=== PATIENT | female | born 1960 | race Caucasian/White ===

== ENCOUNTER → 2016-11-12 | Outpatient (CLI) | payer SELFPAY ==
[~2016-11-12] MED LIST: ALLERGY EYE DRO10 ML OU; FLONASE ALLERG9.9 ML; LEXAPRO20 MG PO; LOSARTAN-HCTZ1 EAC1 PO; METFORMIN HCL500 M1 PO; NEURONTIN100 MG PO; OMEPRAZOLE20 M1 PO; PRAVASTATIN SOD40 MG PO; VITAMIN D2000 UNIT PO
== END | disposition home or self-care (01) ==
LOC: CBAR 09:51
DX: Z01.818 Encounter for other preprocedural examination (principal); E66.01 Morbid (severe) obesity due to excess calories
CPT/HCPCS: G0463

== ENCOUNTER → 2016-12-10 | Outpatient (CLI) | payer SELFPAY | END | disposition home or self-care (01) | LOC: CBAR 08:10 | DX: Z01.818 Encounter for other preprocedural examination (principal); E66.01 Morbid (severe) obesity due to excess calories | CPT/HCPCS: G0463 ==

== ENCOUNTER → 2017-01-07 | Outpatient (CLI) | payer SELFPAY | END | disposition home or self-care (01) | LOC: CBAR 07:37 | DX: Z01.818 Encounter for other preprocedural examination (principal); E66.01 Morbid (severe) obesity due to excess calories | CPT/HCPCS: G0463 ==

== ENCOUNTER → 2017-02-28 | Outpatient (CLI) | payer OTHER ==
--- NOTE | ~2017-02-28 | CR97 ---
[facility] A Service of [facility] & [facility] / [facility] RADIOLOGY TEXT RESULTS PATIENT: OLAMIDE SELBY LOCATION: [facility] : 64 UNIT #: [id number] AGE: [address]: Davion Sandoval III, MD SEX: F ORDER DR: [id number] [id number] [place], [place] [address] [id number] O MR#: [id number] Acc #: [id number] NAME: OLAMIDE SELBY : 1960 SEX: F STUDY DATE/TIME: 02/28/2017 8:16 UNIT: [facility] ROOM: STUDY DESCRIPTION: CR Esophagram Attending Physician: Davion Sandoval III, M.D. Referring Physician: Davion Sandoval III, M.D. Ordering Physician: Davion Sandoval III, M.D. Primary Care Physician: Radha Ku M.D. MEDICAL IMAGING REPORT This report is preliminary unless electronic signature is present EXAM Esophagram HISTORY Presurgical planning for gastric lap band. TECHNIQUE With the patient upright, thin barium was utilized to evaluate the esophagus. A total of 16 overhead spot films were obtained with a fluoroscopy time of 0.4 minutes. FINDINGS Esophagus is of normal caliber with no evidence of stricture, mucosal irregularity or mass. No hiatal hernia is seen. The gastroesophageal junction has a normal appearance. IMPRESSION Negative esophagram. Dictated by... Darrell Mccormick M.D. THIS IS AN ELECTRONICALLY VERIFIED REPORT Darrell Mccormick M.D. at 02/28/2017 4:47 PM [place] TD: 02/28/2017 15:44 JOB #: [id number] MEDICAL IMAGING REPORT Page 1 of 1 COPY
--- NOTE | ~2017-02-28 | CR63 ---
[facility] A Service of [facility] & [facility] RADIOLOGY TEXT RESULTS PATIENT: OLAMIDE SELBY LOCATION: [facility] : 64 UNIT #: [id number] AGE: [address]: Davion Sandoval III, MD SEX: F ORDER DR: [id number] [facility] [address] [place], [place] [address] [id number] O MR#: [id number] Acc #: [id number] NAME: OLAMIDE SELBY. : 1960 SEX: F STUDY DATE/TIME: 02/28/2017 8:07 UNIT: [facility] ROOM: STUDY DESCRIPTION: CR Chest 2 View Attending Physician: Davion Sandoval III, M.D. Referring Physician: Davion Sandoval III, M.D. Ordering Physician: Davion Sandoval III, M.D. Primary Care Physician: Radha Ku M.D. MEDICAL IMAGING REPORT This report is preliminary unless electronic signature is present EXAM Chest, PA and lateral, 02/28/2017. HISTORY Morbid obesity, preop laparoscopic gastric banding. Benign essential hypertension. FINDINGS PA and lateral examination of the chest upright shows a good expansion of the parenchyma with a normal distribution of the pulmonary vascularity. There is no indication of congestion, effusion, infiltrate, tumor, or nodular density. The pleural reflections and diaphragmatic contours are normal. The cardiac silhouette and mediastinal anatomy is within normal limits. IMPRESSION Normal chest. Dictated by... Ravi Arnold M.D. THIS IS AN ELECTRONICALLY VERIFIED REPORT Ravi Arnold M.D. at 02/28/2017 5:34 PM CAPRI/alessandra TD: 02/28/2017 11:18 JOB #: [id number] MEDICAL IMAGING REPORT Page 1 of 1 COPY
--- NOTE | ~2017-02-28 | EKG ---
PATIENT: OLAMIDE SELBY UNIT #: [id number] Ventricular Rate: 74 BPM Atrial Rate: 74 BPM P-R Interval: 174 ms QRS Duration: 98 ms Q-T Interval: 414 ms QTC Calculation(Bezet): 459 ms P Industry: 47 degrees Calculated R Industry: -28 degrees Calculated T Industry: 16 degrees Diagnosis Line: Normal sinus rhythm Diagnosis Line: Incomplete right bundle branch block Diagnosis Line: Inferior infarct , age undetermined Diagnosis Line: Abnormal ECG Diagnosis Line: No previous ECGs available Diagnosis Line: Confirmed by AARTI ESQUIVEL MD ([id number]) on Diagnosis Line: 02/28/2017 12:08:23 PM INTERPRETING MD: SIERRA CARDONA
[2017-02-28 09:19] LABS: HEMATOCRIT 41.1 % (35.0-45.0); HEMOGLOBIN 13.7 gm/dL (12.0-16.0); MEAN CORPUSCULAR HGB CONC 33.4 g/dL (30-36); MEAN PLATELET VOLUME 8.8 FL (6.5-11.5); RED BLOOD COUNT 4.72 X10e (3.90-5.30); RED CELL DISTRIBUTION WIDTH 12.9 % (11.0-15.5); WHITE BLOOD COUNT 8.3 X10e3 (4.0-10.5)
[2017-02-28 10:30] LABS: ALBUMIN SERUM 3.7 g/dL (3.5-5.0); BUN/CREATININE RATIO 35.71; CALCIUM SERUM 9.2 mg/dL (8.4-10.2); CREATININE SERUM 0.7 mg/dL (0.6-1.4); GLOM FILT RATE Estimated 98.2 mL/min (>60); POTASSIUM 3.8 mmol/L (3.5-5.1); PROTEIN TOTAL SERUM 6.6 g/dL (6.0-8.3)
== END | disposition home or self-care (01) ==
LOC: CRAD 07:48 → CAMB 09:00
PROVIDERS: Surgery
DX: Z01.818 Encounter for other preprocedural examination (principal); E66.01 Morbid (severe) obesity due to excess calories; I10 Essential (primary) hypertension
CPT/HCPCS: 36415; 71020; 74220; 80053; 80061; 84443; 85027; 93005

== ENCOUNTER → 2017-03-12 | Day surgery (SDC) | payer OTHER ==
--- NOTE | ~2017-03-12 | OR ---
Unit #: [id number] #: [id number] Patient: OLAMIDE SELBY [id number] [facility] [address] [place], [place] [address] [id number] O MR#: [id number] NAME: OLAMIDE SELBY ROOM: Date of Procedure: 03/12/2017 Admission Date: 03/12/2017 Surgeon: Davion Sandoval III, M.D. : 1960 Attending Physician: Davion Sandoval III, M.D. Primary Care Physician: Radha Ku M.D. OPERATIVE REPORT PREOPERATIVE DIAGNOSIS Chronic severe obesity. POSTOPERATIVE DIAGNOSIS Chronic severe obesity. SECONDARY DIAGNOSIS Anterior paraesophageal hernia. PROCEDURES PERFORMED Laparoscopic adjustable gastric banding (AP standard with low-profile port) and laparoscopic paraesophageal hernia repair. AUTOMOBILE REPOSSESSOR Layton Iglesias M.D. SPECIMENS None. COMPLICATIONS None apparent. ESTIMATED BLOOD LOSS Minimal. INDICATIONS FOR PROCEDURE This is a 56-year-old lady, who has chronic severe obesity with a BMI of 37 and associated comorbidities of hypertension, reflux, sleep apnea, and diabetes. She has been through the bariatric program at [facility] and understands the risks and benefits of the procedure. DESCRIPTION OF PROCEDURE After consent was obtained, including the risks and benefits of slippage, erosion, port dysfunction, and possible failure of weight loss due to noncompliance, the patient was taken to the operating room and placed in the supine position. General anesthetic was administered and the abdomen was prepped and draped in standard surgical fashion. I began by making a 2 cm incision just above and to the left of the umbilicus. I used a Visiport to enter the peritoneal cavity without any difficulty. C02 pneumoperitoneum was then established. Next, I placed a 5 mm port in the right upper quadrant, a 5 mm Jenna liver retractor in Unit #: [id number] #: [id number] Patient: OLAMIDE SELBY the subxiphoid region to provide exposure of the gastroesophageal junction. Next, a 10 mm port was placed in the left upper quadrant and a 5 mm port was placed in the left lateral subcostal region. I began by performing an examination of the GE junction to evaluate for a hiatal hernia. We then scored the peritoneal attachments overlying the angle of His. I then opened up the clear space in the gastrohepatic ligament, and then using 2 blunt graspers, I identified the small fat pad crossing over the right crura. I swept the fat anterior to the crura off the crura and using the pars flaccida, I created a retrogastric tunnel where the blunt grasper exited at the angle of His. Once I had made this tunnel safely, I then inserted an Allergan AP band into the abdominal cavity. This adjustable gastric band was then place around the upper part of the stomach and fastened and buckled anteriorly. We then tacked the lateral fundus over the band to the proximal pouch with 2 interrupted 0 Ethibond sutures. I then used a third stitch to imbricate the excess anterior stomach by going from the lesser curvature up towards where the last stitch was placed. We then had excellent hemostasis. I removed the Jenna liver retractor. We then removed the port tubing through the initial port incision. The rest of the ports were removed, and the pneumoperitoneum was released. I then left a small tail on the tubing. We then attached the port to the excess band tubing. We placed a piece of Prolene mesh along the back side of the port and used a Prolene stitch to anchor this mesh in place. We then trimmed the excess mesh so that just a small footprint of mesh was in place behind the port. I then inserted the tubing back into the abdominal cavity, and we placed the port into a small pocket that was made just inferior to where our initial port incision was made. The mesh was in direct contact with the fascia, and this will scar in place to hold the port in place. We then injected all the port sites with 0.25% plain Marcaine, and I reapproximated the skin edges with interrupted 4-0 Vicryl subcuticular sutures. Steri-strips were then applied. The patient tolerated the procedure without any problems and returned to the recovery room in stable condition. ADDENDUM After exposure of the GE junction, the patient was noted to have a small to medium sized anterior paraesophageal hernia. I scored the phrenoesophageal ligament, reduced the hernia defect including the hernia sac and after identifying both the right and left crura, reapproximated the defect with an interrupted 0 Ethibond [id number] suture. I then proceeded with the case as listed above. Dictated by... Davion Sandoval III, M.D. VCL/jeremie TD: 03/13/2017 09:55 JOB #: [id number] Unit #: [id number] #: [id number] Patient: OLAMIDE SELBY OPERATIVE REPORT Page 1 of 1 X Davion Sandoval III, MD PROCEDURE OPERATIVE NOTE
--- NOTE | ~2017-03-12 | CR7 ---
[facility] A Service of [facility] & [facility] RADIOLOGY TEXT RESULTS PATIENT: OLAMIDE SELBY LOCATION: [facility] : 64 UNIT #: [id number] AGE: [address]: Davion Sandoval III, MD SEX: F ORDER DR: [id number] [facility] [address]. [place], [place] [address] [id number] O MR#: [id number] Acc #: [id number] NAME: OLAMIDE SELBY : 1960 SEX: F STUDY DATE/TIME: 03/12/2017 09:43 UNIT: [facility] ROOM: STUDY DESCRIPTION: CR Abdomen Single AP View Attending Physician: Davion Sandoval III, M.D. Ordering Physician: Davion Sandoval III, M.D. Primary Care Physician: Radha Ku M.D. MEDICAL IMAGING REPORT This report is preliminary unless electronic signature is present EXAM Abdomen, 1 view, 03/12/2017, 0943 hours. CLINICAL HISTORY Postop lap-band placement today. COMPARISON Esophagram, 02/28/2017. FINDINGS Single portable supine view of the abdomen is performed. The right flank and pelvis are excluded from the film. A lap-band is present overlying the left T10 and T11 costovertebral junctions oriented at 56 degrees from vertical. Radiopaque tubing courses inferiorly to a port overlying the left superior iliac bone. Bowel gas pattern is unremarkable. IMPRESSION Postop lap-band placement overlying the left T10 and T11 costovertebral junctions oriented at 56 degrees from vertical. Radiopaque tubing courses inferiorly to a port overlying the left iliac crest. Dictated by... Candice Aceves M.D. THIS IS AN ELECTRONICALLY VERIFIED REPORT Candice Aceves M.D. at 03/12/2017 9:02 PM ITALO/alessandra TD: 03/12/2017 14:28 JOB #: [id number] MEDICAL IMAGING REPORT Page 1 of 1 COPY
== END | disposition home or self-care (01) ==
LOC: CSUR 06:10
DX: E66.01 Morbid (severe) obesity due to excess calories (principal); K44.9 Diaphragmatic hernia without obstruction or gangrene; E11.9 Type 2 diabetes mellitus without complications; I10 Essential (primary) hypertension; K21.9 Gastro-esophageal reflux disease without esophagitis; G47.30 Sleep apnea, unspecified; Z79.84 Long term (current) use of oral hypoglycemic drugs; M19.90 Unspecified osteoarthritis, unspecified site; E78.00 Pure hypercholesterolemia, unspecified; E78.5 Hyperlipidemia, unspecified; Z68.37 Body mass index [BMI] 37.0-37.9, adult; Z80.0 Family history of malignant neoplasm of digestive organs; Z96.652 Presence of left artificial knee joint; Z98.890 Other specified postprocedural states
CPT/HCPCS: 74000; 82947; C1781; J0330; J0690; J1650; J1885; J2250; J2405; J2710; J3010